=== PATIENT | female | born 1975 | race Two or more races ===

== ENCOUNTER 2017-03-17 12:39 | Emergency (ER) | payer MEDICARE ==
[2012-04-11 06:43] VITALS: BMI 39.2
== END 2017-03-17 14:53 | disposition home or self-care (01) ==
LOC: D.ER 12:39
DX: T50.905A Adverse effect of unspecified drugs, medicaments and biological substances, initial encounter (principal); Y92.029 Unspecified place in mobile home as the place of occurrence of the external cause; J18.9 Pneumonia, unspecified organism; J06.9 Acute upper respiratory infection, unspecified; E11.9 Type 2 diabetes mellitus without complications

== ENCOUNTER → 2017-03-23 12:56 | Outpatient (CLI) | payer MEDICARE ==
[2012-04-11 06:43] VITALS: BMI 39.2
== END | disposition home or self-care (01) ==
LOC: D.RT 03-18 14:00
DX: J45.20 Mild intermittent asthma, uncomplicated (principal)

== ENCOUNTER → 2017-04-01 13:28 | Outpatient (CLI) | payer MEDICARE ==
[2012-04-11 06:43] VITALS: BMI 39.2
== END | disposition home or self-care (01) ==
LOC: D.RAD 13:28
DX: J18.8 Other pneumonia, unspecified organism (principal)